=== PATIENT | female | born 1975 | race Caucasian/White ===

== ENCOUNTER 2017-10-20 09:50 | Day surgery (SDC) | payer OTHER, MEDICAID ==
[2017-10-20] MEDS ORDERED: FENTAnyl 50 MCG/ML VIAL (11:26)
[2017-10-20] MEDS ORDERED: MIDAZOLAM 1 MG/ML 2 ML INJ ×2 (11:26)
== END 2017-10-20 17:23 | disposition home or self-care (01) ==
LOC: GIL 09:50
DX: K29.70 Gastritis, unspecified, without bleeding (principal)
CPT/HCPCS: 43239; 84703; 88305; 88312